=== PATIENT | male | born 1965 | race Caucasian/White ===

== ENCOUNTER 2017-06-12 12:11 | Inpatient (IN) | payer OTHER ==
[~2017-06-12] VITALS: Ht 182.9 cm; Wt 129.0 kg
[~2017-06-12 12:11] MED LIST: LACTATED RINGER'S 1000 ML INJ 2,000 ML IV ONE; ONDANSETRON HCL 4 MG/2 ML VIAL IV PUSH ONE; PHENYLEPH/NS 1000 MCG/10 ML SYR IV ONE; PROPOFOL 200 MG/20 ML AMP IV ONE; ePHEDrine/NS 25 MG/5 ML SYR IV ONE
[2017-06-12] MEDS ORDERED: DIPHTH/TETANUS/ACEL PERTUSSIS (BOOSTER) 0.5 ML VIAL/PFS IM ONE ×2 (12:29→13:10)
[2017-06-12] MEDS ORDERED: ceFAZolin 2 GM PREMIX 50 ML ONE ×2 (12:29→18:37)
[2017-06-12 12:46] LABS: AUTOMATED NEUTROPHIL # 8.8 TH/MM3 (1.8-7.7); BASOPHIL # 0.1 TH/MM3 (0-0.2); BASOPHIL % 0.5 % (0.0-2.0); EOSINOPHIL # 0.2 TH/MM3 (0-0.4); EOSINOPHIL % 1.9 % (0.0-4.0); HEMO FLAGS DIFF FINAL; LYMPH % 16.4 % (9.0-44.0); LYMPHOCYTE # 1.9 TH/MM3 (1.0-4.8); MEAN CELL VOLUME 86.1 FL (80.0-100.0); MEAN CORPUSCULAR HEMOGLOBIN 29.3 PG (27.0-34.0); MONO % 6.5 % (0.0-8.0); NEUT % 74.7 % (16.0-70.0); PLATELET COUNT 215 TH/MM3 (150-450); RED CELL DISTRIBUTION WIDTH 14.6 % (11.6-17.2); WHITE BLOOD COUNT 11.8 TH/MM3 (4.0-11.0)
[2017-06-12 12:48] LABS: I-STAT POTASSIUM 5.7 MMOL/L (3.5-4.9)
[2017-06-12 12:54] VITALS: O2SAT 100
[2017-06-12 12:57] LABS: APTT (PATIENT) 25.4 SEC (24.3-30.1); PROTHROMBIN TIME - PATIENT 11.2 SEC (9.8-11.6)
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
[2017-06-12] MEDS ORDERED: SODIUM CHLORIDE 0.9% FLUSH 10 ML FLUSH IV FLUSH PRN (13:45)
[2017-06-12] MEDS ORDERED: oxyCODONE/ACETAMINOPHEN 5 MG/325 MG TAB PO PRN (13:45)
[2017-06-12] MEDS ORDERED: NALOXONE HCL 0.4 MG/ML AMP IV PRN (13:45)
[2017-06-12] MEDS ORDERED: Post-op Orders (for Pharmacy) MISC XX ONE (13:45)
[2017-06-12 13:47] VITALS: BP 167/81; PULSE 102; RESP 20; TEMP 98.8; O2SAT 100
[2017-06-12] MEDS: ONDANSETRON HCL 4 MG/2 ML VIAL IV PRN (13:55)
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
[2017-06-12 14:00] VITALS: PULSE 102
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
[2017-06-12] MEDS: SODIUM CHLOR 0.9% 1000 ML INJ 1,000 ML IV SCH ×2 (14:30→23:17)
[2017-06-12] MEDS ORDERED: LACTULOSE SYRUP 20 GM/30 ML CUP PO PRN (14:45)
[2017-06-12] MEDS: PANTOPRAZOLE SOD 40 MG DELAYED RELEASE TAB PO SCH (15:00)
[2017-06-12 15:13] LABS: AUTOMATED NEUTROPHIL # 16.1 TH/MM3 (1.8-7.7); BASOPHIL % 0.2 % (0.0-2.0); EOSINOPHIL % 0.1 % (0.0-4.0); HEMATOCRIT 35.1 % (39.0-51.0); HEMO FLAGS DIFF FINAL; LYMPH % 4.7 % (9.0-44.0); LYMPHOCYTE # 0.9 TH/MM3 (1.0-4.8); MEAN CELL VOLUME 87.9 FL (80.0-100.0); MEAN CORPUSCULAR HEMOGLOBIN 29.1 PG (27.0-34.0); MEAN CORPUSCULAR HGB CONC 33.1 % (32.0-36.0); MONO % 8.4 % (0.0-8.0); NEUT % 86.6 % (16.0-70.0); PLATELET COUNT 181 TH/MM3 (150-450); RED CELL DISTRIBUTION WIDTH 14.8 % (11.6-17.2); WHITE BLOOD COUNT 18.6 TH/MM3 (4.0-11.0)
[2017-06-12 15:32] LABS: BICARBONATE 21.5 MEQ/L (21.0-32.0)
[2017-06-12 15:52] LABS: CALCIUM-PROTEIN CORRECTED 7.7 MG/DL (8.5-10.1)
[2017-06-12 16:00] VITALS: PULSE 98
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
[2017-06-12] MEDS ORDERED: SUGAMMADEX SODIUM 200 MG/2 ML VIAL IV PUSH ONE ×2 (17:35)
[2017-06-12] MEDS ORDERED: LIDOCAINE HCL 1% 50 ML VIAL ONE (17:40)
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
[2017-06-12] MEDS ORDERED: GENTAMICIN SULFATE 80 MG/2 ML VIAL ONE (18:37)
[2017-06-12] MEDS ORDERED: fentaNYL CITRATE 250 MCG/5 ML AMP ONE (19:08)
[2017-06-12 20:00] VITALS: BP 127/63; PULSE 93; PULSE 94; RESP 10; TEMP 98.8; O2SAT 100
[2017-06-12] MEDS ORDERED: DO NOT ADM ANY ANTICOAGULANT DRUGS PRN (20:45)
--- NOTE | 2017-06-12 20:58 | PD.OP ---
Operative Report Date of Surgery: Jun 12, 2017 Preoperative Diagnosis: (1) Laceration of head with complication Full-thickness scalp laceration-avulsion with foreign body Postoperative Diagnosis: (1) Laceration of head with complication Full-thickness scalp laceration-avulsion with foreign body Procedure: Debridement and complex closure full thickness left parieto-occipital scalp laceration with rotational flap to repair 2 cm area of tissue loss. Anesthesia: Gen. Surgeon: Julian Urbina Machine Applicator Cementer(s): None Operation and Findings: Findings: Extensive laceration and avulsion to the left parieto-occipital region with exposure of the scalp. Separation of the scalp from the underlying muscle fascia. Extensive small particulate mineral and metallic debris Procedure in detail: Patient was brought into the operating room and general endotracheal anesthesia induced without difficulty Lines were established anesthesia MATTY hose and sequential compression devices in place Appropriate timeout procedure performed with all personnel present and in agreement Patient placed in semilateral position on the 3080 table with the roll beneath the left shoulder and the head turned towards the right on the horseshoe headrest. Left-sided head was shaved with clippers sterilely prepped and draped. The posteriorly based avulsed scalp flap was carefully inspected. A large amount of relatively small particulate mineral appearing and possible metallic debris was carefully debrided with irrigation suction the 10 blade knife and the Metzenbaum scissors and small hemostats. The muscle fascia was initially reapproximated with the 2-0 Vicryl suture interrupted. The galea, where present, present was reapproximated with 2-0 Vicryl suture. There was an approximately 2 cm area of missing scalp tissue at the anterior aspect of the avulsion. In order to close tissue over this region. The avulsed scalp flap was rotated anteriorly and medially. An additional small curvilinear incision was made posteriorly to allow the rotation of the flap. The periosteal elevator was used to free up the surrounding scalp from the cranium to allow further mobilization of the tissue. An approximately 20 mm wide second smaller avulsed flap medial to the main area of avulsion had only a fairly small approximately 1 cm pedicle base but did appear to be still well vascularized. This was reapproximated with 3-0 Vicryl interrupted. The anterior medial aspect of the laceration was then closed with 3-0 nylon running. Griffin were used for the lateral aspect of the closure. A dressing of sterile Telfa, 4 x 4's and head stockinette was placed The patient was taken to recovery room in stable condition All counts were correct at the end of the case Estimated blood loss was 50 cc Julian Urbina MD Jun 12, 2017 20:58
[2017-06-12] MEDS: SODIUM CHLORIDE 0.9% FLUSH 10 ML FLUSH IV FLUSH SCH (21:00)
[2017-06-12] MEDS: DOCUSATE SODIUM 50 MG/SENNA 8.6 MG TAB PO SCH (21:00)
[2017-06-12] MEDS ORDERED: DOCUSATE SODIUM 100 MG CAP PO SCH (21:00)
[2017-06-12 22:00] VITALS: PULSE 100
[2017-06-12] MEDS: MORPHINE SULFATE 4 MG/ML INJ IV PRN (22:06)
[2017-06-12 23:21] LABS: HEMATOCRIT 35.2 % (39.0-51.0); REVIEW FLAG FINAL
[2017-06-13] VITALS (11 sets, daily range): BP systolic 121–166; BP diastolic 66–92; PULSE 98–123; RESP 13–20; TEMP 98.8–101.4; O2SAT 86–98
[2017-06-13] MEDS: ONDANSETRON HCL 4 MG/2 ML VIAL IV PRN ×4 (00:19→20:27)
[2017-06-13] MEDS: MORPHINE SULFATE 4 MG/ML INJ IV PRN ×3 (01:23→10:17)
[2017-06-13 05:27] LABS: AUTOMATED NEUTROPHIL # 9.9 TH/MM3 (1.8-7.7); BASOPHIL # 0.1 TH/MM3 (0-0.2); BASOPHIL % 0.4 % (0.0-2.0); EOSINOPHIL % 0.1 % (0.0-4.0); HEMATOCRIT 30.9 % (39.0-51.0); HEMO FLAGS DIFF FINAL; LYMPH % 10.6 % (9.0-44.0); LYMPHOCYTE # 1.3 TH/MM3 (1.0-4.8); MEAN CELL VOLUME 87.2 FL (80.0-100.0); MEAN CORPUSCULAR HEMOGLOBIN 29.9 PG (27.0-34.0); MEAN CORPUSCULAR HGB CONC 34.3 % (32.0-36.0); MONO % 9.1 % (0.0-8.0); NEUT % 79.8 % (16.0-70.0); PLATELET COUNT 167 TH/MM3 (150-450); RED BLOOD COUNT 3.54 MIL/MM3 (4.50-5.90); RED CELL DISTRIBUTION WIDTH 14.8 % (11.6-17.2); WHITE BLOOD COUNT 12.4 TH/MM3 (4.0-11.0)
[2017-06-13 05:55] LABS: BICARBONATE 27.3 MEQ/L (21.0-32.0); POTASSIUM 3.9 MEQ/L (3.5-5.1)
[2017-06-13 06:09] LABS: CALCIUM-PROTEIN CORRECTED 7.7 MG/DL (8.5-10.1)
[2017-06-13] MEDS: DOCUSATE SODIUM 50 MG/SENNA 8.6 MG TAB PO SCH ×2 (08:09→20:23)
[2017-06-13] MEDS: SODIUM CHLORIDE 0.9% FLUSH 10 ML FLUSH IV FLUSH SCH ×2 (08:13→20:30)
--- NOTE | 2017-06-13 09:34 | EKG ---
Date Performed: 06/12/2017 Time Performed: 14:13:26 PTAGE: 89 years EKG: Sinus rhythm . Possible inferior infarct - age undetermined QRS changes V3/V4 may be due to LVH but cannot rule ou t anterior infarct Abnormal ECG NO PREVIOUS TRACING DOCTOR: Bran Baltazar Interpretating Date/Time 06/13/2017 09:31:56
[2017-06-13] MEDS: ACETAMINOPHEN 325 MG TAB PO PRN ×2 (10:51→16:13)
[2017-06-13] MEDS: SODIUM CHLOR 0.9% 1000 ML INJ 1,000 ML IV SCH ×2 (11:00→20:31)
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
[2017-06-13] MEDS: ACETAMINOPHEN/HYDROcodone 325 MG/5 MG TAB PO PRN ×3 (12:09→20:24)
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
[2017-06-13] MEDS: PANTOPRAZOLE SOD 40 MG DELAYED RELEASE TAB PO SCH (16:14)
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
[2017-06-14] VITALS: BP 120/62; PULSE 108; RESP 17; TEMP 98.4; O2SAT 95
[2017-06-14] MEDS: ACETAMINOPHEN 325 MG TAB PO PRN (02:52)
[2017-06-14] MEDS: SODIUM CHLOR 0.9% 1000 ML INJ 1,000 ML IV SCH ×3 (04:40→20:54)
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
[2017-06-14 06:17] LABS: HEMATOCRIT 28.3 % (39.0-51.0); HEMO FLAGS DIFF FINAL; LYMPH % 9.3 % (9.0-44.0); MEAN CELL VOLUME 86.5 FL (80.0-100.0); MEAN CORPUSCULAR HEMOGLOBIN 30.7 PG (27.0-34.0); MEAN CORPUSCULAR HGB CONC 35.5 % (32.0-36.0); PLATELET COUNT 136 TH/MM3 (150-450); RED BLOOD COUNT 3.27 MIL/MM3 (4.50-5.90); RED CELL DISTRIBUTION WIDTH 14.5 % (11.6-17.2); WHITE BLOOD COUNT 9.6 TH/MM3 (4.0-11.0)
[2017-06-14 06:18] LABS: AUTOMATED NEUTROPHIL # 7.5 TH/MM3 (1.8-7.7); BASOPHIL % 0.4 % (0.0-2.0); EOSINOPHIL # 0.1 TH/MM3 (0-0.4); EOSINOPHIL % 0.7 % (0.0-4.0); LYMPHOCYTE # 0.9 TH/MM3 (1.0-4.8); MONO % 11.6 % (0.0-8.0)
[2017-06-14 07:16] LABS: BICARBONATE 26.6 MEQ/L (21.0-32.0); POTASSIUM 3.7 MEQ/L (3.5-5.1)
[2017-06-14 08:00] VITALS: BP 148/83; PULSE 90; RESP 18; TEMP 97.4; O2SAT 97
[2017-06-14] MEDS: DOCUSATE SODIUM 50 MG/SENNA 8.6 MG TAB PO SCH ×2 (09:23→20:53)
[2017-06-14] MEDS: ACETAMINOPHEN/HYDROcodone 325 MG/5 MG TAB PO PRN ×3 (09:23→18:39)
[2017-06-14] MEDS: SODIUM CHLORIDE 0.9% FLUSH 10 ML FLUSH IV FLUSH SCH ×2 (09:24→20:53)
[2017-06-14] MEDS: MORPHINE SULFATE 4 MG/ML INJ IV PRN ×2 (11:08→16:27)
--- NOTE | 2017-06-14 11:32 | HHI.PR ---
Subjective Subjective Notes Pain controlled Feeling better Objective Vitals/I&O Vital Signs Date Time Temp Pulse Resp B/P Pulse Ox O2 Delivery O2 Flow Rate FiO2 06/14/17 08:00 97.4 90 18 148/83 97 06/14/17 07:55 3.00 06/14/17 04:28 Nasal Cannula 06/13/17 07:00 95 Labs Laboratory Tests Test 06/14/17 05:18 White Blood Count 9.6 Red Blood Count 3.27 Hemoglobin 10.0 Hematocrit 28.3 Mean Corpuscular Volume 86.5 Mean Corpuscular Hemoglobin 30.7 Mean Corpuscular Hemoglobin 35.5 Concent Red Cell Distribution Width 14.5 Platelet Count 136 Mean Platelet Volume 9.2 Neutrophils (%) (Auto) 78.0 Lymphocytes (%) (Auto) 9.3 Monocytes (%) (Auto) 11.6 Eosinophils (%) (Auto) 0.7 Basophils (%) (Auto) 0.4 Neutrophils # (Auto) 7.5 Lymphocytes # (Auto) 0.9 Monocytes # (Auto) 1.1 Eosinophils # (Auto) 0.1 Basophils # (Auto) 0.0 CBC Comment DIFF FINAL Differential Comment Sodium Level 138 Potassium Level 3.7 Chloride Level 103 Carbon Dioxide Level 26.6 Anion Gap 8 Blood Urea Nitrogen 7 Creatinine 1.12 Estimat Glomerular Filtration 70 Rate Random Glucose 119 Calcium Level 8.1 Cardiovascular: Regular Lungs: Clear Abdomen: Non-distended A/P Assessment and Plan Dressing will be taken down by NS today PT Pain control Discharge planning Anita Lea MD Jun 14, 2017 11:32
[2017-06-14 12:00] VITALS: BP 128/78; PULSE 83; RESP 17; TEMP 96.8; O2SAT 98
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
[2017-06-14] MEDS: PANTOPRAZOLE SOD 40 MG DELAYED RELEASE TAB PO SCH (13:21)
[2017-06-14] MEDS: ONDANSETRON HCL 4 MG/2 ML VIAL IV PRN (16:29)
[2017-06-14] MEDS: BACITRACIN TOP OINT 15 GM TUBE TOPICAL SCH (17:22)
[2017-06-14 20:00] VITALS: BP 140/84; PULSE 80; RESP 20; TEMP 99.9; O2SAT 97
[2017-06-15] VITALS (8 sets, daily range): BP systolic 133–168; BP diastolic 69–91; PULSE 74–90; RESP 17–20; TEMP 97.9–99.2; O2SAT 94–98
[2017-06-15] MEDS: ONDANSETRON HCL 4 MG/2 ML VIAL IV PRN ×2 (01:50→21:11)
[2017-06-15] MEDS: MORPHINE SULFATE 4 MG/ML INJ IV PRN (01:51)
[2017-06-15] MEDS: SODIUM CHLORIDE 0.9% FLUSH 10 ML FLUSH IV FLUSH SCH ×2 (09:00→21:06)
[2017-06-15] MEDS ORDERED: LACTULOSE SYRUP 20 GM/30 ML CUP PO ONE (09:00)
--- NOTE | 2017-06-15 09:11 | ECHRPT ---
Indication: R/O PERICARDIAL EFFUSION, TRAUMA CONCLUSIONS Normal left ventricular size. Mild concentric left ventricular hypertrophy. The left ventricular systolic function is normal with an estimated ejection fraction in the range of 55-60%. No regional wall motion abnormalities are present. Left ventricular diastolic function parameters are normal. The left atrial size is mildly dilated. No pericardial effusion. BP: 166 / 92 HR: 111 Rhythm: Sinus MEASUREMENTS (Male / Female) Normal Values Technical Quality:Fair 2D ECHO LV Diastolic Diameter PLAX 5.6 cm 4.2 - 5.9 / 3.9 - 5.3 cm LV Systolic Diameter PLAX 4.2 cm IVS Diastolic Thickness 1.2 cm 0.6 - 1.0 / 0.6 - 0.9 cm LVPW Diastolic Thickness 1.2 cm 0.6 - 1.0 / 0.6 - 0.9 cm LV Relative Wall Thickness 0.4 LVOT Diameter 2.2 cm Aortic Root Diameter 3.0 cm LA Systolic Diameter LX 4.2 cm 3.0 - 4.0 / 2.7 - 3.8 cm M-MODE AV Cusp Separation MM 2.2 cm DOPPLER AV Peak Velocity 138.0 cm/s AV Peak Gradient 7.6 mmHg AV Mean Gradient 4.0 mmHg AV Velocity Time Integral 26.0 cm LVOT Peak Velocity 59.4 cm/s LVOT Peak Gradient 1.4 mmHg LVOT Velocity Time Integral 10.9 cm LVOT Cardiac Index 1763.0 cm/minm AV Area Cont Eq vti 1.6 cm AV Area Cont Eq pk 1.6 cm Mitral E Point Velocity 105.0 cm/s Mitral A Point Velocity 76.5 cm/s Mitral E to A Ratio 1.4 FINDINGS LEFT VENTRICLE Normal left ventricular size. Mild concentric left ventricular hypertrophy. The left ventricular systolic function is normal with an estimated ejection fraction in the range of 55-60%. No regional wall motion abnormalities are present. Left ventricular diastolic function parameters are normal. RIGHT VENTRICLE Normal right ventricular size and systolic function. LEFT ATRIUM The left atrial size is mildly dilated. RIGHT ATRIUM The right atrial size is normal. ATRIAL SEPTUM Normal atrial septal thickness without atrial level shunting by limited color doppler interrogation. AORTA The aortic root and proximal ascending aorta are normal in size on limited imaging. MITRAL VALVE Structurally normal mitral valve. No mitral valve stenosis or regurgitation. AORTIC VALVE Trileaflet aortic valve. No aortic valve stenosis or regurgitation. TRICUSPID VALVE Structurally normal tricuspid valve. No tricuspid valve stenosis or regurgitation. PULMONARY VALVE The pulmonary valve is not well visualized. VESSELS The inferior vena cava is normal in size. PERICARDIUM No pericardial effusion. Refugio Conte MD (Electronically Signed) Final Date:15 June 2017 09:10
[2017-06-15] MEDS: ACETAMINOPHEN/HYDROcodone 325 MG/5 MG TAB PO PRN ×3 (09:29→21:05)
[2017-06-15] MEDS: BACITRACIN TOP OINT 15 GM TUBE TOPICAL SCH (09:30)
[2017-06-15] MEDS: DOCUSATE SODIUM 50 MG/SENNA 8.6 MG TAB PO SCH ×2 (09:31→21:00)
--- NOTE | 2017-06-15 10:37 | HHI.PR ---
Subjective Subjective Notes Decreased appetite Complains of dizziness Objective Vitals/I&O Vital Signs Date Time Temp Pulse Resp B/P Pulse Ox O2 Delivery O2 Flow Rate FiO2 06/15/17 09:02 98.1 96 06/15/17 08:00 85 17 156/85 06/14/17 20:00 3.00 06/14/17 12:00 Nasal Cannula 06/13/17 07:00 95 Labs Laboratory Tests Test 06/12/17 06/12/17 06/13/17 06/14/17 12:25 14:00 03:40 05:18 Bedside Hemoglobin 15.0 G/DL Bedside Hematocrit 44.0 % Prothrombin Time 11.2 SEC Prothromb Time International 1.0 RATIO Ratio Activated Partial 25.4 SEC Thromboplast Time Bedside Sodium 139 MMOL/L Bedside Potassium 5.7 MMOL/L Bedside Chloride 106 MMOL/L Bedside Blood Urea Nitrogen 17 MG/DL Bedside Creatinine 1.1 MG/DL Bedside Glucose 152 MG/DL Blood Type O POSITIVE Antibody Screen NEGATIVE Nasal Screen MRSA (PCR) MRSA NOT DETECTED Protein Corrected Calcium 7.7 MG/DL Total Protein 6.1 GM/DL White Blood Count 9.6 TH/MM3 Red Blood Count 3.27 MIL/MM3 Hemoglobin 10.0 GM/DL Hematocrit 28.3 % Mean Corpuscular Volume 86.5 FL Mean Corpuscular Hemoglobin 30.7 PG Mean Corpuscular Hemoglobin 35.5 % Concent Red Cell Distribution Width 14.5 % Platelet Count 136 TH/MM3 Mean Platelet Volume 9.2 FL Neutrophils (%) (Auto) 78.0 % Lymphocytes (%) (Auto) 9.3 % Monocytes (%) (Auto) 11.6 % Eosinophils (%) (Auto) 0.7 % Basophils (%) (Auto) 0.4 % Neutrophils # (Auto) 7.5 TH/MM3 Lymphocytes # (Auto) 0.9 TH/MM3 Monocytes # (Auto) 1.1 TH/MM3 Eosinophils # (Auto) 0.1 TH/MM3 Basophils # (Auto) 0.0 TH/MM3 CBC Comment DIFF FINAL Differential Comment Sodium Level 138 MEQ/L Potassium Level 3.7 MEQ/L Chloride Level 103 MEQ/L Carbon Dioxide Level 26.6 MEQ/L Anion Gap 8 MEQ/L Blood Urea Nitrogen 7 MG/DL Creatinine 1.12 MG/DL Estimat Glomerular Filtration 70 ML/MIN Rate Random Glucose 119 MG/DL Calcium Level 8.1 MG/DL Radiology Last Impressions Chest X-Ray 06/14/17 0600 Signed Impressions: Service Date/Time: Wednesday, June 14, 2017 04:40 - CONCLUSION: 1. Bibasilar atelectasis. There has been no significant change when compared to the prior exam. Bran Syed MD Thoracic Spine CT 06/12/17 1230 Signed Impressions: Service Date/Time: June 12:54 - CONCLUSION: No fracture or dislocation. Lew Cisneros Jr., MD Pelvis X-Ray 06/12/17 1230 Signed Impressions: Service Date/Time: June 12:17 - CONCLUSION: No acute finding is identified. Antonio Calvin MD Maxillofacial CT 06/12/17 1230 Signed Impressions: Service Date/Time: , June 12, 2017 12:57 - CONCLUSION: No maxillofacial fracture is visualized. Antonio Calvin MD Lumbar Spine CT 06/12/17 1230 Signed Impressions: Service Date/Time: June 12:54 - CONCLUSION: 1. No acute lumbar spine abnormality is identified. 2. There is degenerative disc disease with facet hypertrophy at L5-S1. Left paracentral posterior disc osteophyte complex causes mild spinal canal stenosis and moderate left neural foraminal stenosis. Antonio Calvin MD Head CT 06/12/17 1230 Signed Impressions: Service Date/Time: June 12:54 - CONCLUSION: 1. Left posterior scalp hematoma and soft tissue swelling at the high convexity with likely a laceration given the soft tissue air. Also, there are punctate densities within the soft tissues likely representing debris/foreign bodies. 2. No fracture or acute intracranial abnormality is identified. Antonio Calvin MD Chest CT 06/12/17 1230 Signed Impressions: Service Date/Time: June 13:04 - CONCLUSION: Examination quality degraded by respiratory motion artifact. However, no acute finding is identified within the chest. Antonio Calvin MD Cervical Spine CT 06/12/17 1230 Signed Impressions: Service Date/Time: June 12:56 - CONCLUSION: No acute cervical spine abnormality is identified. There is degenerative disc disease at C5-C6 and C6-C7. Antonio Calvin MD Abdomen/Pelvis CT 06/12/17 1230 Signed Impressions: Service Date/Time: June 12:54 - CONCLUSION: No acute traumatic injury is identified within the abdomen or pelvis. Antonio Calvin MD Narrative Exam GENERAL: 51-year-old obese male OOB in chair. SKIN: Warm and dry. HEAD: Normocephalic. Dry dressing to scalp wound. ENT: No nasal bleeding or discharge. Mucous membranes pink and moist. NECK: Trachea midline. No JVD. CARDIOVASCULAR: Regular rate and rhythm. RESPIRATORY: No accessory muscle use. Lungs clear to auscultation. Breath sounds equal bilaterally. GASTROINTESTINAL: Abdomen soft, non-tender, nondistended. + BS. MUSCULOSKELETAL: Extremities without cyanosis, or edema. NEUROLOGICAL: Awake and alert. Normal speech. A/P Assessment and Plan INJURIES: Scalp avulsion Concussion 06/12: Debridement and complex closure full thickness left parieto-occipital scalp laceration with rotational flap to repair 2cm area of tissue loss. PMHx: HTN Diet: Regular, added EnLive supplements Pulm: IS Pain: Percocet, Morphine IV Activity: OOB. PT and OT ordered GI: PO Protonix Bowel: Corinne-colace. PRN Lactulose. No BM yet. Lactulose x1 DVT: SCDs Scalp avulsion Neurosurgery consulted 06/12: Debridement and complex closure full thickness left parieto-occipital scalp laceration with rotational flap to repair 2cm area of tissue loss. Pain control OOBPT ABX: Ancef- complete Wound care per NS Tmax 99.9 Leukocytosis resolved Concussion Supportive care Avoid second head injury Postconcussive education Plan of care discussed with patient, and RN at bedside. Plan for patient to discharge tomorrow home versus home with home health care. Remarks seen and examined with the nurse practitioners agree with assessment and plan patient is dizzy not able to ambulate safely Dressing change by the neurosurgeon yesterday Plan to discharge home next 24 hours Eric Turner Jun 15, 2017 10:37 Anita Lea MD Jun 15, 2017 17:03
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
[2017-06-15] MEDS: PANTOPRAZOLE SOD 40 MG DELAYED RELEASE TAB PO SCH (16:05)
[2017-06-15] MEDS ORDERED: WALKER WHEELS/F1 MIS (19:49)
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
[2017-06-16] VITALS: BP 137/74; PULSE 86; RESP 18; TEMP 99.4; O2SAT 95
[2017-06-16] MEDS: ONDANSETRON HCL 4 MG/2 ML VIAL IV PRN ×2 (02:53→10:29)
[2017-06-16] MEDS: ACETAMINOPHEN/HYDROcodone 325 MG/5 MG TAB PO PRN ×3 (02:53→15:37)
[2017-06-16 07:45] VITALS: BP 152/89; PULSE 65; RESP 20; TEMP 97.3; O2SAT 97
[2017-06-16] MEDS: SODIUM CHLORIDE 0.9% FLUSH 10 ML FLUSH IV FLUSH SCH (09:08)
[2017-06-16] MEDS: DOCUSATE SODIUM 50 MG/SENNA 8.6 MG TAB PO SCH (09:09)
[2017-06-16] MEDS: BACITRACIN TOP OINT 15 GM TUBE TOPICAL SCH (09:09)
[2017-06-16] MEDS ORDERED: HYDR-3516 PO (11:35)
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
[2017-06-16 12:00] VITALS: BP 152/89; PULSE 65; RESP 20; TEMP 97.1; O2SAT 97
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
[2017-06-16 14:07] LABS: HEMATOCRIT 30.7 % (39.0-51.0); REVIEW FLAG FINAL
[2017-06-16] MEDS: PANTOPRAZOLE SOD 40 MG DELAYED RELEASE TAB PO SCH (15:36)
[2017-06-16 16:00] VITALS: BP 157/84; PULSE 69; RESP 20; TEMP 96.7; O2SAT 97
[2017-06-16] MEDS ORDERED: ONDA4TAB7 PO (19:00)
[2017-06-16] MEDS ORDERED: ONDANSETRON ODT 4 MG TAB PO PRN (19:00)
== END 2017-06-16 19:17 | disposition home health service (06) | DRG 577 ==
LOC: NEPI 12:11 → N03B 13:27 → EDBD 13:27 → N07B 06-13 14:56
PROVIDERS: ADMIT Surgery; ATTEND Surgery
PROC: 0JQ00ZZ Repair Scalp Subcutaneous Tissue and Fascia, Open Approach (ICD-10-PCS; 2017-06-12)
PROC: 0JB00ZZ Excision of Scalp Subcutaneous Tissue and Fascia, Open Approach (ICD-10-PCS; 2017-06-12)
PROC: 0HX0XZZ Transfer Scalp Skin, External Approach (ICD-10-PCS; principal; 2017-06-12 17:37)
DX: S01.02XA Laceration with foreign body of scalp, initial encounter (principal); S06.0X1A Concussion with loss of consciousness of 30 minutes or less, initial encounter; I10 Essential (primary) hypertension; E66.9 Obesity, unspecified; D72.829 Elevated white blood cell count, unspecified; V49.9XXA Car occupant (driver) (passenger) injured in unspecified traffic accident, initial encounter; Y92.411 Interstate highway as the place of occurrence of the external cause; Z68.38 Body mass index [BMI] 38.0-38.9, adult; R42 Dizziness and giddiness; K59.00 Constipation, unspecified
CPT/HCPCS: 70450; 70486; 71010; 71260; 72125; 72128; 72131; 72170; 74177; 80048; 82435; 82565; 82947; 84132; 84155; 84295; 84520; 85014; 85018; 85025; 85610; 85730; 86850; 86900; 86901; 87641; 90715; 93005; 93308; 94150; A0431-QM-SH; A0436-QM-SH; J0690; J1580; J2270; J2370; J2405; J3010; J7030; J7120